=== PATIENT | male | born 1965 | race Caucasian/White ===

== ENCOUNTER 2018-04-13 12:40 | Outpatient (POV) | END 2018-04-13 17:00 | LOC: OUTPT 12:40 | PROVIDERS: ATTEND Otolaryngology | DX: H91.90 Unspecified hearing loss, unspecified ear (principal) ==

== ENCOUNTER 2018-04-28 14:40 | Outpatient (POV) | END 2018-04-28 17:00 | LOC: OUTPT 14:40 | PROVIDERS: ATTEND Otolaryngology | DX: H91.90 Unspecified hearing loss, unspecified ear (principal) ==